=== PATIENT | female | born 1935 | race Caucasian/White ===

== ENCOUNTER → 2019-12-28 10:08 | Outpatient (CLI) | payer MEDICARE, SELFPAY ==
--- NOTE | ~2019-12-28 | XR_ITS ---
EXAMINATION: XR cervical spine 4-5V EXAM DATE: 12/28/2019 10:41 INDICATION: neck pain, radicular symptoms and tingling in left arm, nkt . TECHNIQUE: Cervical spine frontal, lateral, lateral swimmers, and open-mouth odontoid projections. Bilateral oblique projections of the cervical spine. Submentovertex projection. There are no prior st udies for comparison. FINDINGS: There is moderate disc disease at C5-6 with 2 mm retrolisthesis at this level. Moderate di sc disease at C6-7, mild at the other cervical levels. Evidence of moderate cervical facet arthropath y and mid cervical uncovertebral joint disease with the right C5-6 neural foramina probably most narr owed on exam with about moderate stenosis. The odontoid process is intact. The lateral masses of C1 line up with C2. Prevertebral soft tissue and pre-dens space are within normal limits. Lung apices ar e clear. IMPRESSION: Overall moderate cervical arthropathy. Reviewed, dictated and finalized at location A. SER ALL AROUND
== END ==
PROVIDERS: PCP Internal Medicine; Visit Provider Internal Medicine
DX: M54.2 Cervicalgia (principal)
CPT/HCPCS: 72050

== ENCOUNTER 2020-05-28 18:45 | Emergency (ER) | payer MEDICARE, SELFPAY ==
[2020-05-28 18:50] VITALS: BP 198/76; PULSE 81; RESP 18; TEMP 36.4; O2SAT 97
--- NOTE | 2020-05-28 18:56 | PC.NURSE ---
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 Pt was holding retractors for an hour for , pt was warm under OR lights. Pt reports not eating much of lunch. Pt reports continuing dizziness.
--- NOTE | 2020-05-28 18:57 | ECG_ITS ---
Measurements Intervals [place] Rate: 84 P: 53 CO: 159 QRS: -24 QRSD: 82 T: 21 QT: 371 QTc: 440 Interpretive Statements SINUS RHYTHM VOLTAGE CRITERIA FOR LVH LOW VOLTAGE- PRECORDIAL LEADS BASELINE ARTIFACT- I, II, III, AVR, AVL, AVF, V1-V6 BORDERLINE ECG Electronically Signed On 05-30-2020 9:53:25 CDT by Arnold Falk D.O.
--- NOTE | 2020-05-28 19:02 | ED.DIZZY ---
HPI - Dizziness General Chief Complaint: Dizziness Stated Complaint: near syncope, elevated blood pressures Time Seen by Provider: 05/28/20 19:00 History of Present Illness HPI Narrative: 85 yo female w/ no significnat past medical history presents to the ED for near syncope. She was assisting in a when she began to feel hot and dizzy. She then became nauseated and had to sit down. Symtpoms improved mildly once she was seated, but did not fully resolve. She now has a mild headache. She reports that she has been having issues with allergies for the past few days. Noted to have very elevated BP following this event. She reports that this is very atypical for her. No chest pain, shortness of breath, fever. She has been completely vaccinated against COVID-19 for a few months. Related Data Home Medications Medication Instructions Recorded Confirmed estradiol mg 05/28/20 vpjxkakifryj-ghpi-rfcvf acid 1 tablet PO DAILY 05/28/20 05/28/20 [Centrum Women] potassium mg 05/28/20 Allergies Allergy/AdvReac Type Severity Reaction Status Date / Time codeine Allergy Nausea and Verified 05/28/20 19:01 Vomiting Iodinated Contrast Media Allergy Hives Verified 05/28/20 19:17 Sulfa (Sulfonamide Allergy Hives Verified 05/28/20 19:01 Antibiotics) Contrast Media Allergy Hives Uncoded 05/28/20 19:01 Review of Systems Review of Systems: All systems reviewed & are unremarkable except as noted in HPI and below Constitutional: Constitutional: Reports as per HPI Eyes: Eyes: Reports no additional eye complaints ENT: Denies vertigo, Reports nasal congestion and Denies sore throat Cardiovascular: Cardiovascular: Denies chest pain Respiratory: Respiratory: Denies dyspnea Gastrointestinal: Gastrointestinal: Denies abdominal pain, Denies diarrhea, Reports nausea and Denies vomiting Genitourinary: Genitourinary: Denies hematuria and Denies dysuria Musculoskeletal: Musculoskeletal: Denies back pain Neurologic: Reports dizziness, Denies syncope, Denies numbness and Denies weakness [facility] Social History Social History Smoking status: Never smoker Substance use: never Exam Const: General: healthy appearing, no acute distress and alert Orientation/consciousness: patient oriented x3 HENMT: Head: normal to inspection Neck: Neck: normal visual inspection and no lymphadenopathy Chest: Chest palpation & inspection: no tenderness Resp: Effort & Inspection: normal respiratory effort Auscultation: clear to auscultation bilaterally, no rales, no rhonchi and no wheezes Cardio: Jugular venous distension: no JVD Rate: regular rate Rhythm: regular rhythm Heart sounds: no murmurs GI: Inspection: non-distended GI Palp: Yes Soft to palpation and No Tenderness to palpation present (GI) Skin: General skin exam: normal color Neuro: General: patient oriented x3, moves all extremities, no focal motor deficits and CN's II-XI intact bilaterally Speech: normal speech Extrem: General: normal to inspection and no edema Psych: Appearance: well kempt Affect: normal affect Course Vital Signs Vital signs: Vital Signs Temperature 36.4 C 05/28/20 18:50 Pulse Rate 81 05/28/20 18:50 Respiratory Rate 18 05/28/20 18:50 Blood Pressure 198/76 H 05/28/20 18:50 Pulse Oximetry 97 05/28/20 18:50 Temperature 36.7 C 05/28/20 22:51 Pulse Rate 86 05/28/20 22:51 Respiratory Rate 16 05/28/20 22:51 Blood Pressure 177/68 H 05/28/20 22:51 Pulse Oximetry 98 05/28/20 22:51 MDM - Dizziness MDM Narrative Medical decision making narrative: Feeling better after fluids and acetaminophen. UA consistent with UTI. This could be at least in part responsible for her symptoms. BP coming down somewhat spontaneously. Still elevated. I would be concerned about starting new blood pressure medication during an acute illness especially since she was feeling light
[2020-05-28 19:38] LABS: Basophils Absolute Auto 0.1 K/mm3 (0.0-0.1); Basophils Percent Auto 0.7 % (0.2-1.2); Eosinophils Absolute Auto 0.2 K/mm3 (0-0.3); Eosinophils Percent Auto 2.3 % (0-4.4); Hematocrit 42.1 % (37.0-47.0); Hemoglobin 14.3 g/dL (12.0-15.0); Immature Granulocyte Absolute 0.03 K/mm3 (0.00-0.031); Immature Granulocyte Percent A 0.4 % (0-0.5); Lymphocytes Absolute Auto 2.68 K/mm3 (0.9-3.2); Lymphocytes Percent Auto 35.6 % (18.3-44.2); Mean Corpuscular Hemoglobin 30.3 pg (26-34); Mean Corpuscular Volume 89.2 fl (80-100); Mean Platelet Volume 11.4 fl (7.4-10.4); Monocytes Absolute Auto 0.6 K/mm3 (0.1-0.6); Monocytes Percent Auto 7.7 % (2.6-8.5); Neutrophils Percent Auto 53.3 % (45.5-73.1); Platelet Count Result 221 k/mm3 (150-375); Red Blood Count 4.72 M/mm3 (4.2-5.4); Red Cell Distribution Width 12.8 % (11.5-14.5); White Blood Count 7.5 K/mm3 (4.5-10.0)
[2020-05-28 19:51] LABS: Add Urine Microscopic? YES; Appearance Urine Cloudy (Clear); Bacteria Urine 2+ /hpf; Bilirubin Urine Negative (Negative); Blood Urine Negative (Negative); Color Urine Yellow (Yellow); Glucose Urine UA Negative (Negative); Ketones Urine Negative (Negative); Leukocyte Esterase Ur Trace LEU/UL (Negative); Mucus Urine Rare /lpf; Nitrate Urine Negative (Negative); Protein Urine Negative (Negative); RBC Urine 0-2 /hpf (0-2); Specific Grav Ur 1.015 (1.001-1.035); Squamous Epithelial Cell Urine Many /hpf (Few); Urobilinogen Urine Negative mg/dL (<2.0)
[2020-05-28] MEDS: SODIUM CHLORIDE 0.9% IV 500 ML 999 ML IV CONT (19:58)
[2020-05-28 20:38] LABS: Alanine Aminotransferase 22 U/L (4-35); Albumin Level 4.1 g/dL (3.5-5.1); Alkaline Phosphatase 91 U/L (38-126); Anion Gap 7 mmol/L (8-16); Aspartate Amino Transferase 32 U/L (14-36); Bilirubin,Total 0.2 mg/dL (0.2-1.3); Blood Urea Nitrogen 15 mg/dL (7-17); Calcium 8.6 mg/dL (8.4-10.2); Carbon Dioxide 24 mmol/L (22-30); Chloride 108 mmol/L (98-107); Estimated CRCL calculation 37 ml/min; Estimated Glomerular Filt Rate > 60; Glucose 111 mg/dL (65-105); Potassium 3.9 mmol/L (3.4-5.0); Sodium 139 mmol/L (137-145)
[2020-05-28] MEDS: NITROFURANTOIN MONOHYD MACROCR 100 MG CAP PO (21:19)
[2020-05-28 21:27] VITALS: BP 201/88; PULSE 68; RESP 16; O2SAT 99
[2020-05-28 22:51] VITALS: BP 177/68; PULSE 86; RESP 16; TEMP 36.7; O2SAT 98
== END 2020-05-28 22:52 | disposition home or self-care (01) ==
PROVIDERS: Emergency Provider Emergency Medicine; PCP Internal Medicine
DX: R55 Syncope and collapse (principal); N39.0 Urinary tract infection, site not specified; I10 Essential (primary) hypertension; R94.31 Abnormal electrocardiogram [ECG] [EKG]
CPT/HCPCS: 36415; 80053; 81001; 85025; 93005; 96365; 99284; A9270; J0131; J7040

== ENCOUNTER 2020-08-10 09:09 | Outpatient (CLI) | payer MEDICARE, SELFPAY ==
--- NOTE | 2020-08-10 | ECHO_ITS ---
Patient Info Name: Elyssa Sosa Age: 85 years : 1935 Gender: Female Ht: 62 in Wt: 145 lbs BSA: 1.71 m2 HR: 62 bpm BP: 156 / 89 mmHg Heart Rhythm: Sinus Rhythm Technical Quality: Good Exam Date: 08/10/2020 10:50 AM Exam Location: [facility] Patient Status: Outpatient Admit Date: 08/10/2020 Staff Ordering Physician: ToddZunilda MD Portable Sawmill Operator: James Oconnell, ALEXICS, RT Attending Provider: Todd, Zunilda Connor MD Referring Physician: Todd MARTINEZ; Exam Type: CA echo doppler color flow Study Info Indications I10 - Essential (primary) hypertension Complete two-dimensional, color flow and Doppler transthoracic echocardiogram is performed. Strain analysis performed. Summary 1. Complete two-dimensional, color flow and Doppler transthoracic echocardiogram is performed. 2. Left ventricular chamber dimension is normal. 3. Left ventricular systolic function is normal, estimated at 60-65%. 4. Left atrial chamber dimension is mildly enlarged. 5. Small amounts of mitral, tricuspid and aortic regurgitation. Left Ventricle Left ventricular chamber dimension is normal. Left ventricular systolic function is normal, estimated at 60-65%. The left ventricular diastolic function is grade I diastolic dysfunction. Right Ventricle Right ventricular chamber dimension is normal. Left Atria Left atrial chamber dimension is mildly enlarged. Right Atria Right atrial chamber dimension is normal. Aortic Valve The aortic valve is normal. There is mild aortic valve regurgitation. Pulmonic Valve The pulmonic valve is normal. Mitral Valve The mitral valve has normal leaflets. There is trace mitral valve regurgitation. Tricuspid Valve The tricuspid valve leaflets are normal. There is mild tricuspid valve regurgitation. Pericardium/Pleural The pericardium appears normal. Aorta The aortic root size at the sinus of Valsalva is normal. Left Ventricular Outflow Tract Name Value Normal LVOT 2D LVOT Diameter 2.0 cm LVOT Doppler LVOT Peak Gradient 2 mmHg LVOT Mean Gradient 1 mmHg LVOT VTI 17 cm LVOT VTI/AV VTI Ratio 0.7 LVOT Stroke Volume 54 ml LVOT CO 3.1 l/min LVOT CI 1.8 l/min/m2 Mitral Valve Name Value Normal MV Doppler MV Peak Gradient 1 mmHg MV Mean Gradient 0 mmHg MV Decel Mono 313 cm/s2 MV PHT 75 ms MV Area (PHT) 2.9 cm2 4.0-5.0 MV Area (Cont Eq VTI) 3.8 cm2 MV Regurgitation Doppler
--- NOTE | ~2020-08-10 | US_ITS ---
EXAMINATION: US retroperitoneal duplex ltd DATE: 08/10/2020 10:26 INDICATION: Hypertension. TECHNIQUE: Multiple grayscale, color Doppler, and pulsed Doppler images of the kidneys and renal bdudy tika were obtained. COMPARISON: None. FINDINGS: Right kidney measures 10.4 x 3.7 x 3.9 cm. Left kidney measures 10.2 x 5.3 x 5.7 cm. No hydronephrosi s. The aorta peak systolic velocity is 96 cm/s. The right renal artery peak systolic velocity is 123 cm/s in the proximal segment, 133 cm/s in the mid segment, and 72 cm/s in the distal segment. The lef t renal artery peak systolic velocity is 177 cm/s in the proximal segment, 79 cm/s in the mid segment , and 95 cm/s in the distal segment. There is diffuse hepatic steatosis. IMPRESSION: 1. No Doppler evidence of renal artery stenosis. Reviewed, dictated and finalized at location A.
== END 2020-08-10 09:10 | disposition home or self-care (01) ==
LOC: ANHIMG 09:13
PROVIDERS: PCP Internal Medicine; Visit Provider Internal Medicine
DX: I10 Essential (primary) hypertension (principal)
CPT/HCPCS: 93306; 93976

== ENCOUNTER 2020-11-06 01:54 | Outpatient (CLI) | payer MEDICARE, SELFPAY ==
[2020-11-06 17:27] LABS: SARS-CoV-2 RNA PCR Positive
== END 2020-11-06 01:55 | disposition home or self-care (01) ==
LOC: ANHCARD 01:55
PROVIDERS: PCP Internal Medicine; Visit Provider Internal Medicine
DX: U07.1 COVID-19 (principal)
CPT/HCPCS: C9803; U0003; U0005

== ENCOUNTER 2022-10-29 14:10 | Inpatient (IN) | payer MEDICARE, SELFPAY ==
[2022-10-29] VITALS (41 sets, daily range): BP systolic 125–155; BP diastolic 56–95; PULSE 71–113; RESP 13–28; TEMP 36.2; O2SAT 93–98; BMI 26.1
--- NOTE | ~2022-10-29 | XR_ITS ---
EXAMINATION: XR chest 2V DATE: 10/29/2022 14:54 INDICATION: Chest pain and pressure. Burning sensation and back. TECHNIQUE: PA and lateral views of the chest were obtained. COMPARISON: Chest radiograph dated 09/12/2021 FINDINGS: Mild streaky lingular atelectasis at the left costophrenic angle. No other airspace opacities, pulmon oscar edema, pleural effusion or pneumothorax. The cardiomediastinal silhouette is normal. Mild thoraci c and upper lumbar spondylosis. IMPRESSION: 1. Mild lingular atelectasis. No other acute cardiopulmonary disease. Reviewed, dictated and finalized at location A.
--- NOTE | 2022-10-29 14:18 | ECG_ITS ---
Measurements Intervals [place] Rate: 98 P: 53 WV: 155 QRS: -26 QRSD: 74 T: 85 QT: 316 QTc: 405 Interpretive Statements SINUS RHYTHM POSSIBLE LEFT ATRIAL ENLARGEMENT LEFT VENTRICULAR HYPERTROPHY AND ST-T CHANGE CONSIDER ANTERIOR INFARCT, AGE INDETERMINATE ABNORMAL ECG COMPARED TO ECG 05/28/2020 18:57:37 CONSIDER ANTERIOR INFARCT, AGE INDETERMINATE NOW PRESENT Electronically Signed On 10-29-2022 14:38:46 CDT by Arnold Falk D.O.
[2022-10-29 14:35] LABS: Basophils Percent Auto 0.1 % (0.2-1.2); Hematocrit 43.1 % (37.0-47.0); Hemoglobin 14.3 g/dL (12.0-15.0); Immature Granulocyte Absolute 0.07 K/mm3 (0.00-0.031); Immature Granulocyte Percent A 0.5 % (0-0.5); Mean Corpuscular HGB Conc 33.2 g/dl (32-36); Mean Corpuscular Hemoglobin 29.5 pg (26-34); Mean Corpuscular Volume 88.9 fl (80-100); Monocytes Absolute Auto 0.2 K/mm3 (0.1-0.6); Monocytes Percent Auto 1.1 % (2.6-8.5); Neutrophils Percent Auto 84.3 % (45.5-73.1); Platelet Count Result 294 k/mm3 (150-375); Red Blood Count 4.85 M/mm3 (4.2-5.4); Red Cell Distribution Width 12.9 % (11.5-14.5); White Blood Count 14.3 K/mm3 (4.5-10.0)
[2022-10-29 14:46] LABS: Prothrombin Time 13.3 Seconds (11.1-14.7)
[2022-10-29 14:47] LABS: Partial Thromboplastin Time 26.3 SECONDS (22.3-36.8)
[2022-10-29 14:48] LABS: Alanine Aminotransferase 28 U/L (6-35); Albumin Level 4.5 g/dL (3.5-5.1); Alkaline Phosphatase 81 U/L (38-126); Anion Gap 12 mmol/L (8-16); Aspartate Amino Transferase 29 U/L (14-36); Bilirubin,Total 0.5 mg/dL (0.2-1.3); Blood Urea Nitrogen 19 mg/dL (7-17); Calcium 8.9 mg/dL (8.4-10.2); Carbon Dioxide 22 mmol/L (22-30); Chloride 104 mmol/L (98-107); Estimated CRCL calculation 45 ml/min; Estimated Glomerular Filt Rate > 60; Glucose 157 mg/dL (65-110); Lipase 99 U/L (23-300); Potassium 4.2 mmol/L (3.4-5.0); Sodium 138 mmol/L (137-145)
[2022-10-29 15:02] LABS: Troponin I 0.205 ng/mL (0.000-0.034)
[2022-10-29] MEDS: ASPIRIN 81 MG CHEWABLE TABLET 324 MG PO (15:30)
[2022-10-29] MEDS: HEPARIN SODIUM 5,000 UNITS/ML VIAL 3500 UNITS IV PUSH (18:04)
[2022-10-29] MEDS: HEPARIN SOD/D5W 100 UNITS/ML 25,000 UNITS/250 ML BAG 7 UNITS IV CONT (18:04)
--- NOTE | 2022-10-29 18:11 | ED.CHESTPAIN ---
HPI - Chest Pain General Chief Complaint: Chest Pain Stated Complaint: ELEVATED TROPONIN Time Seen by Provider: 10/29/22 15:50 Source: patient and RN notes reviewed Mode of arrival: ambulatory Limitations: no limitations History of Present Illness HPI narrative: This is an 87 year old female with history of hypertension who presents for evaluation of chest pain and elevated troponin. Patient states she has been having substernal chest burning pain with activity for 3 weeks. She states she has been going to walk in clinic at [facility] for evaluation 3 times over the past 3 weeks. They have been diagnosing her with bronchitis. This morning she was awaken out of her sleep with chest pain. This pain as associated with shortness of breath. This pain lasted for a few hours. She went to ER at [facility], and she was found to have elevated troponin. IT appears they wanted to transfer patient from ER but she left AMA to come to [place] by private care. She denies chest pain currently. She denies history of coronary artery disease. She denies cough, URI symptoms, fever, nausea, diaphoresis or leg swelling. Timing of current episode: episodic Onset: during exertion Pain location: substernal Pain radiation: right arm and back Quality: burning Exacerbating factors: exertion Risk Factors Coronary artery disease risk factors: hypertension Related Data Home Medications Medication Instructions Recorded Confirmed estradiol 0.5 mg tablet 0.5 mg PO DAILY 05/28/20 10/29/22 multivitamin-ferrous 1 tablet PO DAILY 05/28/20 10/29/22 fumarate-folic acid 18 mg-400 mcg tablet (Centrum Women) potassium 99 mg tablet 297 mg PO DAILY 05/28/20 10/29/22 amlodipine 5 mg tablet 5 mg PO DAILY 10/29/22 10/29/22 cetirizine 10 mg tablet (Zyrtec) 10 mg PO DAILY 10/29/22 10/29/22 montelukast 10 mg tablet 10 mg PO HS 10/29/22 10/29/22 omeprazole 20 mg capsule,delayed 20 mg PO DAILY 10/29/22 10/29/22 release Allergies Allergy/AdvReac Type Severity Reaction Status Date / Time codeine Allergy Nausea and Verified 10/29/22 15:49 Vomiting Iodinated Contrast Media Allergy Hives Verified 10/29/22 15:49 Sulfa (Sulfonamide Allergy Hives Verified 10/29/22 15:49 Antibiotics) Contrast Media Allergy Hives Uncoded 05/28/20 19:01 Review of Systems Constitutional: Constitutional: Reports weakness Cardiovascular: Cardiovascular: Reports chest pain, Denies syncope, Denies rapid heart rate, Denies irregular heart rhythm and Denies leg edema Respiratory: Respiratory: Denies chest congestion, Denies hemoptysis, Denies excessive phlegm production and Reports dyspnea Gastrointestinal: Gastrointestinal: Denies abdominal pain, Denies hematochezia, Denies diarrhea and Denies vomiting Genitourinary: Genitourinary: Denies hematuria and Denies dysuria Musculoskeletal: Musculoskeletal: Denies joint swelling, Denies loss of height and Denies muscle weakness Neurologic: Denies syncope, Denies focal weakness and Denies weakness PMFSH Past Medical History Medical History (Updated 10/29/22 @ 21:32 by Kristine Olson PA-C) Diverticulitis Gastroesophageal reflux disease Hypertension Surgical History Surgical History (Updated 10/29/22 @ 21:27 by Kristine Olson PA-C) History of appendectomy History of bladder surgery History of exploratory laparotomy History of hysterectomy History of tonsillectomy Family History Family History (Updated 10/29/22 @ 21:28 by Kristine Olson PA-C) Other Hypertension Social History Social History (Updated 10/29/22 @ 21:28 by Kristine Olson PA-C) Social History: Surrogate medical decision maker: Jhon Sanchez, daughter. Code status: Full code. Smoking status: Never smoker Alcohol intake: never Substance use: never Lack of Transportation: No Lack of Food: Never True Current Housing: I Have Housing Concerned About Future Housing: No Difficulty Paying G
[2022-10-29] MEDS: ONDANSETRON INJ 4 MG/2 ML VIAL IV PUSH (18:37)
--- NOTE | 2022-10-29 19:10 | PC.NURSE ---
Assumed care of pt. Pt resting quietly per cart. C/o mild nausea. Will check MAR. Otherwise in nad at this time.
--- NOTE | 2022-10-29 19:28 | ECG_ITS ---
Measurements Intervals [place] Rate: 103 P: 64 MD: 168 QRS: -16 QRSD: 84 T: 83 QT: 331 QTc: 433 Interpretive Statements SINUS TACHYCARDIA LEFT VENTRICULAR HYPERTROPHY AND ST-T CHANGE BASELINE ARTIFACT- I, II BORDERLINE ECG COMPARED TO ECG 10/29/2022 14:23:28 SINUS TACHYCARDIA NOW PRESENT Electronically Signed On 10-30-2022 6:21:02 CDT by Arnold Falk D.O.
--- NOTE | 2022-10-29 19:32 | PC.NURSE ---
Pt pushed call light to report midsternal cp radiating to bilateral shoulder blades that just started. ERP notified and orders received.
[2022-10-29] MEDS: NITROGLYCERIN SL 0.4 MG TABLET SUBLINGUAL ×2 (19:40→19:53)
--- NOTE | 2022-10-29 19:53 | PC.NURSE ---
Pain decreased with initial nitro from 9/10 to 5/10. Administered additional nitro.
--- NOTE | 2022-10-29 20:00 | PC.NURSE ---
Pt reports pain now 0/10 after nitro x 2.
[2022-10-29] MEDS: METOPROLOL TARTRATE 25 MG TABLET PO (20:29)
--- NOTE | 2022-10-29 20:32 | PC.NURSE ---
Report to DIANNA Joseph in IMU. All questions answered.
--- NOTE | 2022-10-29 20:40 | ADMGEN ---
This patient, Elyssa Sosa, was admitted to IMU Room 202-01. Patient/family oriented to hospital policies and general routines including ID bracelet, bed and alarms, visiting hours, pain management, procedures, bathroom and other care routines, personal items, smoking policy, room service/diet, and visiting hours. Information on how to activate the Rapid Response Team has been discussed. Patient/Family are encouraged to report perceived risks to care and to ask questions if they do not understand what they are told or what they should do.
--- NOTE | 2022-10-29 21:22 | PM.IMHP ---
H&P: HPI History of Present Illness Date/Time: 10/29/22 17:30 Chief Complaint: Chest pain. Narrative: This is a very pleasant 87-year-old female with hypertension and GERD who presented to the emergency department via private vehicle for evaluation of chest pain. The patient provides the following history. She describes an intermittent burning pain in the mid chest which radiates up to the right shoulder and down into the left lower chest. At times she feels short of breath with this and has occasional sensations of racing heart. She denies associated nausea, vomiting, and sweats. She was previously seen at a clinic in [place] for the symptoms a couple of weeks ago at which time she was prescribed an antibiotic, steroids, and inhaler for presumed URI. She received no benefit from any of this treatment. She was evaluated once again yesterday and a chest CT was ordered which ruled out pulmonary embolism. She had several labs drawn as well and was told that her troponin was elevated. She decided to come the [place] for treatment as she has previously worked here and did not stay at the clinic in [place]. She has never had similar symptoms. This burning sensation she has been having is not at all similar to what she experiences with GERD. She has no known history of cardiac disease. Her vital signs were stable on arrival to [place] ED. CMP and CBC were relatively unremarkable. Initial troponin was 0.205. EKG showed sinus rhythm with possible left atrial enlargement, LVH in ST T-wave changes and age-indeterminate anterior infarct. In the ED she was given metoprolol tartrate 25 mg p.o. x1, aspirin 324 mg p.o., and she was started on heparin drip. She is being admitted to the IMU with non STEMI for close monitoring and Cardiology consultation. At the time my evaluation she seems comfortable. Review of Systems Review of Systems: Twelve systems were reviewed and are negative except for as per HPI. [facility] Past Medical History Medical History (Updated 10/29/22 @ 21:32 by Kristine Olson PA-C) Diverticulitis Gastroesophageal reflux disease Hypertension Surgical History Surgical History (Updated 10/29/22 @ 21:27 by Kristine Olson PA-C) History of appendectomy History of bladder surgery History of exploratory laparotomy History of hysterectomy History of tonsillectomy Family History Family History (Updated 10/29/22 @ 21:28 by Kristine Olson PA-C) Other Hypertension Social History Social History (Updated 10/29/22 @ 21:28 by Kristine Olson PA-C) Social History: Surrogate medical decision maker: Jhon Sanchez, daughter. Code status: Full code. Smoking status: Never smoker Alcohol intake: never Substance use: never Lack of Transportation: No Lack of Food: Never True Current Housing: I Have Housing Concerned About Future Housing: No Difficulty Paying Gas/Electric Bills: No Difficulty Paying for Meds: No Currently Unemployed: No Education: Decline to Answer Difficulty w/ Childcare or Family Care: No Additional living arrangements comments: Lives in [place]. Additional occupation/education comments: Retired at the age of 85 from [employer]. Spiritual care concerns: No Meds Home Medications and Allergies Home Medications Medication Instructions Recorded Confirmed Type estradiol 0.5 mg tablet 0.5 mg PO DAILY 05/28/20 10/29/22 History multivitamin-ferrous 1 tablet PO DAILY 05/28/20 10/29/22 History fumarate-folic acid 18 mg-400 mcg tablet (Centrum Women) potassium 99 mg tablet 297 mg PO DAILY 05/28/20 10/29/22 History amlodipine 5 mg tablet 5 mg PO DAILY 10/29/22 10/29/22 History cetirizine 10 mg tablet (Zyrtec) 10 mg PO DAILY 10/29/22 10/29/22 History montelukast 10 mg tablet 10 mg PO HS 10/29/22 10/29/22 History omeprazole 20 mg capsule,delayed 20 mg PO DAILY 10/29/22 10/29/22 History release Allergies Allergy/AdvReac Type Severity Reaction Status Da
[2022-10-29 21:44] LABS: Troponin I 0.694 ng/mL (0.000-0.034)
[2022-10-29] MEDS: predniSONE 20 MG TABLET PO (22:41)
[2022-10-29] MEDS: MONTELUKAST SODIUM 10 MG TABLET PO (22:41)
[2022-10-29] MEDS: MELATONIN 5 MG TABLET PO (22:41)
--- NOTE | 2022-10-29 22:49 | PC.NURSE ---
Spoke with Dr. Rivera and [facility] regarding pt's contrast allergy. Pt to be pre-treated with three doses of oral Prednisone and one dose of oral Benadryl prior to cardiac cath. Pt to receive a dose of Prednisone 13 hours, 6 hours, and 1 hour prior to cath. Benadryl to be administered 1 hour prior to cath. Staff to notify pharmacy if last dose of Prednisone and Benadryl needs to be administered before scheduled 1000 dose, as cath is not yet scheduled.
[2022-10-30] VITALS (36 sets, daily range): BP systolic 101–153; BP diastolic 48–73; PULSE 60–96; RESP 12–23; TEMP 36.1–36.7; O2SAT 92–97
[2022-10-30 01:02] LABS: Partial Thromboplastin Time 66.7 SECONDS (22.3-36.8)
[2022-10-30] MEDS: HEPARIN SODIUM 5,000 UNITS/ML VIAL 2500 UNITS IV PUSH (01:57)
[2022-10-30] MEDS: predniSONE 20 MG TABLET PO (04:04)
--- NOTE | 2022-10-30 06:00 | ECHO_ITS ---
Patient Info Name: Elyssa Sosa Age: 87 years : 1935 Gender: Female Ht: 62 in Wt: 147 lbs BSA: 1.73 m2 HR: 65 bpm BP: 101 / 52 mmHg Heart Rhythm: Sinus Rhythm Technical Quality: Good Exam Date: 10/30/2022 9:00 AM Exam Location: [facility] Card Pulmonary Patient Status: Inpatient Admit Date: 10/29/2022 Staff Ordering Physician: Jody Blake MD Administrative Fellow: Bridget Brown RDCS Attending Provider: Agusto Vaca MD Referring Physician: Lou SANTOS; Exam Type: CA echo doppler color flow Study Info Indications - CHEST PAIN Complete two-dimensional, color flow and Doppler transthoracic echocardiogram is performed. Summary 1. Complete two-dimensional, color flow and Doppler transthoracic echocardiogram is performed. 2. Left ventricular chamber dimension is normal. 3. Left ventricular systolic function is normal, estimated at 60-65%. 4. There is mildly increased left ventricular wall thickness. 5. The left ventricular diastolic function is grade I diastolic dysfunction. 6. The apical inferior wall, and apical cap are akinetic. 7. The apical septum, and apical anterior wall are hypokinetic. 8. Left atrial chamber dimension is mildly enlarged. 9. There is mild aortic valve sclerosis. 10. There is mild aortic valve regurgitation. 11. There is mild aortic valve calcification. 12. There is mild to moderate mitral valve regurgitation. 13. There is mild tricuspid valve regurgitation. Left Ventricle Left ventricular chamber dimension is normal. Left ventricular systolic function is normal, estimated at 60-65%. There is mildly increased left ventricular wall thickness. The left ventricular diastolic function is grade I diastolic dysfunction. The apical inferior wall, and apical cap are akinetic. The apical septum, and apical anterior wall are hypokinetic. All other rogers appear normal. Right Ventricle Right ventricular chamber dimension is normal. Right ventricular systolic function is normal. Left Atria Left atrial chamber dimension is mildly enlarged. Right Atria Right atrial chamber dimension is normal. Atrial Septum Intact interatrial septum visualized by color flow imaging. Aortic Valve The aortic valve is trileaflet. There is mild aortic valve sclerosis. There is no aortic valve stenosis. There is mild aortic valve regurgitation. There is mild aortic valve calcification. Pulmonic Valve The pulmonic valve is normal. There is no pulmonic valve stenosis. There is trace pulmonic regurgitation. Mitral Valve The mitral valve has normal leaflets. There is no mitral valve stenosis. There is mild to moderate mitral valve regurgitation. Tricuspid Valve The tricuspid valve leaflets are normal. There is no significant tricuspid valve stenosis. There is mild tricuspid valve regurgitation. No pulmonary hypertension, estimated pulmonary arterial systolic pressure is 33 mmHg. Pericardium/Pleural The pericardium appears normal. There is trivial pericardial effusion. Inferior Vena Cava Normal inferior vena cava with >50% collapse upon inspiration consistent with normal right atrial pressure, 8 mmHg. Aorta The aortic root size at the sinus of Valsalva is normal. Left Ventricular Outflow Tract Name Value Normal LVOT 2D LVOT Diameter 1.9 cm
[2022-10-30 08:12] LABS: Basophils Percent Auto 0.1 % (0.2-1.2); Hematocrit 36.9 % (37.0-47.0); Hemoglobin 12.3 g/dL (12.0-15.0); Immature Granulocyte Absolute 0.07 K/mm3 (0.00-0.031); Immature Granulocyte Percent A 0.5 % (0-0.5); Lymphocytes Absolute Auto 2.25 K/mm3 (0.9-3.2); Lymphocytes Percent Auto 16.1 % (18.3-44.2); Mean Corpuscular HGB Conc 33.3 g/dl (32-36); Mean Corpuscular Hemoglobin 30.1 pg (26-34); Mean Corpuscular Volume 90.2 fl (80-100); Mean Platelet Volume 10.2 fl (7.4-10.4); Monocytes Absolute Auto 0.4 K/mm3 (0.1-0.6); Monocytes Percent Auto 2.5 % (2.6-8.5); Neutrophils Absolute Auto 11.3 K/mm3 (1.3-6.7); Neutrophils Percent Auto 80.8 % (45.5-73.1); Platelet Count Result 249 k/mm3 (150-375); Red Blood Count 4.09 M/mm3 (4.2-5.4)
[2022-10-30 08:24] LABS: Partial Thromboplastin Time 101.2 SECONDS (22.3-36.8)
--- NOTE | 2022-10-30 08:28 | PM.IMPN ---
Progress Note: A&P Assessment and Plan (1) Non-ST elevation myocardial infarction (NSTEMI): Code(s): I21.4 - Non-ST elevation (NSTEMI) myocardial infarction Status: Acute Assessment and Plan: Coronary angiography recommended per Cardiology. Catheterization performed 10/30 Loaded with ASA 324mg x 1. Continue ASA 81mg once daily. Will load with Plavix 600mg x 1 and continue with Plavix 75mg once daily thereafter. Start high-intensity statin and heparin drip for now. Has gotten total of Prednisone 40mg PO in preparation for contrast given iodine allergy. Will give Solumedrol 40mg IV and Benadryl 50mg IV. Echocardiogram 10/30 showed EF of 60-65% with grade 1 diastolic dysfunction, mild valvular disease Cardiac catheterization 10/30 showed: 1. The proximal and mid LAD has heavy diffuse calcifications. The mid LAD has two tandem dense calcific lesions of 80-90%. 2. The mid RCA has diffuse disease with an 80% stenosis. Attempted PCI of the mid RCA lesion, but unable to get good guide catheter engagement of the RCA despite attempts with multiple different guide catheters. Cardiology is recommending: Plan for complex PCI as an outpatient at [facility] with Dr. Christensen (tentatively scheduled for November 14). Continue ASA 81mg once daily, Plavix 75mg once daily, high-intensity statin. Will optimize antianginal therapy. Continue calcium channel myles. Will add Imdur. Anticipate discharge 10/31 (2) Hypertension: Code(s): I10 - Essential (primary) hypertension Status: Acute Assessment and Plan: Blood pressure reviewed 10/30 (3) Leukocytosis: Code(s): D72.829 - Elevated white blood cell count, unspecified Status: Acute Assessment and Plan: Stable, likely reactive, monitor (4) Hyperglycemia: Code(s): R73.9 - Hyperglycemia, unspecified Status: Acute Assessment and Plan: Blood glucose reviewed 10/30 (5) Gastroesophageal reflux disease: Code(s): K21.9 - Gastro-esophageal reflux disease without esophagitis Status: Acute Plan DVT prophylaxis with heparin drip, now SCDs GI prophylaxis with PPI Code status full code 10/29: the patient presented to the emergency department for evaluation of intermittent chest discomfort as detailed in HPI. Labs, imaging, EKG, and all reports were personally reviewed. Her history is somewhat unusual for cardiac pain however she does have elevated troponins and EKG changes. She has been started on a heparin drip. She received metoprolol and aspirin in the ED. She will be NPO after midnight for possible cardiac catheterization tomorrow. Her blood pressures were reviewed and they have been relatively stable. Continue antihypertensives and monitor blood pressures closely. Random glucose was 157. Check fasting level and hemoglobin A1c. White blood cell count is elevated however she was recently on steroids. She gives no history to suggest underlying acute infection. Her home medications will be reviewed and resumed as appropriate. Subjective Date/time seen: 10/30/22 08:28 Interval history: 87-year-old female with history of hypertension and GERD presenting with chest pain and currently being treated for NSTEMI. No overnight events noted. [facility] 10/30. Review of Systems Review of Systems: ROS unobtainable: Yes other Exam Narrative: In heart catheterization Objective Data Vital Signs Vital Signs: Vital Signs - 24 hr 10/29/22 14:17 10/29/22 15:14 10/29/22 15:15 Temperature 97.2 F L Pulse Rate 113 H 103 H 100 Respiratory Rate 18 13 23 H Blood Pressure 152/74 H 146/75 H Pulse Oximetry 97 97 94 Oxygen Delivery Room Air 10/29/22 15:16 10/29/22 15:17 10/29/22 15:30 Temperature Pulse Rate 97 100 96 Respiratory Rate 18 20 23 H Blood Pressure 139/77 Pulse Oximetry 97 96 97 Oxygen Delivery 10/29/22 15:31 10/29/22 15:46 10/29/22 15:47 Temperature Pulse Rate 96 98 98
[2022-10-30 08:35] LABS: Anion Gap 9 mmol/L (8-16); Blood Urea Nitrogen 19 mg/dL (7-17); Calcium 8.4 mg/dL (8.4-10.2); Carbon Dioxide 21 mmol/L (22-30); Chloride 106 mmol/L (98-107); Cholesterol 228 mg/dL (0-200); Estimated CRCL calculation 40 ml/min; Estimated Glomerular Filt Rate > 60; Glucose 157 mg/dL (65-110); HDL Direct 44 mg/dL; Magnesium 2.4 mg/dL (1.6-2.3); Potassium 4.4 mmol/L (3.4-5.0); Sodium 136 mmol/L (137-145); Triglycerides 177 mg/dL (<150)
[2022-10-30 08:45] LABS: LDL Cholesterol Direct 144 mg/dL
--- NOTE | 2022-10-30 09:10 | PM.CNCAR ---
Assessment and Plan Assessment and plan (1) Non-ST elevation myocardial infarction (NSTEMI): Code(s): I21.4 - Non-ST elevation (NSTEMI) myocardial infarction Status: Acute Assessment and Plan: Coronary angiography recommended. Discussed the indications for the procedure, procedure details, risks vs benefits, alternative management options. Patient agreeable to cath. Will proceed with cath today. Loaded with ASA 324mg x 1. Continue ASA 81mg once daily. Will load with Plavix 600mg x 1 and continue with Plavix 75mg once daily thereafter. Start high-intensity statin. Continue Heparin drip for now. Has gotten total of Prednisone 40mg PO in preparation for contrast given iodine allergy. Will give Solumedrol 40mg IV and Benadryl 50mg IV. Echocardiogram pending. Further recommendations/plan pending results of cardiac catheterization. (2) Hypertension: Code(s): I10 - Essential (primary) hypertension Status: Acute Assessment and Plan: Stable. Continue Amlodipine. (3) Hyperlipidemia: Code(s): E78.5 - Hyperlipidemia, unspecified Status: Acute Assessment and Plan: Start high intensity statin. Plan Recommendations/plan discussed with Hospitalist. History of Present Illness History of Present Illness Consult date/time: 10/30/22 09:10 Requesting physician: Jody Blake MD Consult reason: chest pain Reason For Visit: NSTEMI Narrative: We are consulted for NSTEMI. This is an 87 year old female with hypertension and GERD who presented with chest pain. Has been having substernal burning type of chest pain for about the past 3 weeks. Improved with NTG that she received in the ER, and has been chest pain free since coming up to the floor from the ER. Patient reports that her chest pain would come on with exertion. EKG shows sinus tachycardia with LVH with secondary changes, no ischemic changes. CXR without acute findings. Her troponins are 0.205, 0.420, 0.694. Patient was started on Heparin drip. Started on PO Prednisone for iodine allergy as well. Review of Systems Review of Systems: All systems reviewed & are unremarkable except as noted in HPI and below (HPI) [facility] Past Medical History Medical History Diverticulitis Gastroesophageal reflux disease Hypertension Surgical History Surgical History History of appendectomy History of bladder surgery History of exploratory laparotomy History of hysterectomy History of tonsillectomy Family History Family History Other Hypertension Social History Social History Social History: Surrogate medical decision maker: Jhon Sanchez, daughter. Code status: Full code. Smoking status: Never smoker Alcohol intake: never Substance use: never Lack of Transportation: No Lack of Food: Never True Current Housing: I Have Housing Concerned About Future Housing: No Difficulty Paying Gas/Electric Bills: No Difficulty Paying for Meds: No Currently Unemployed: No Education: Decline to Answer Difficulty w/ Childcare or Family Care: No Additional living arrangements comments: Lives in [place]. Additional occupation/education comments: Retired at the age of 85 from [employer]. Spiritual care concerns: No Meds Home Medications and Allergies Home Medications Medication Instructions Recorded Confirmed Type estradiol 0.5 mg tablet 0.5 mg PO DAILY 05/28/20 10/29/22 History multivitamin-ferrous 1 tablet PO DAILY 05/28/20 10/29/22 History fumarate-folic acid 18 mg-400 mcg tablet (Centrum Women) potassium 99 mg tablet 297 mg PO DAILY 05/28/20 10/29/22 History amlodipine 5 mg tablet 5 mg PO DAILY 10/29/22 10/29/22 History cetirizine 10 mg tablet (Zyrtec) 10 mg PO DAILY 10/29/22 10/29/22 His
--- NOTE | 2022-10-30 09:21 | WPDMODSED ---
Moderate Sedation Note-Pt Data Patient Data Diagnosis: NSTEMI Present Complaint: NSTEMI Procedure to be performed/Plan: Coronary angiography, left heart cath, +/- percutaneous coronary intervention Allergies Allergy/AdvReac Type Severity Reaction Status Date / Time codeine Allergy Nausea and Verified 10/29/22 15:49 Vomiting Iodinated Contrast Media Allergy Hives Verified 10/29/22 15:49 Sulfa (Sulfonamide Allergy Hives Verified 10/29/22 15:49 Antibiotics) Contrast Media Allergy Hives Uncoded 05/28/20 19:01 Home Medications Medication Instructions Recorded Confirmed Type estradiol 0.5 mg tablet 0.5 mg PO DAILY 05/28/20 10/29/22 History multivitamin-ferrous 1 tablet PO DAILY 05/28/20 10/29/22 History fumarate-folic acid 18 mg-400 mcg tablet (Centrum Women) potassium 99 mg tablet 297 mg PO DAILY 05/28/20 10/29/22 History amlodipine 5 mg tablet 5 mg PO DAILY 10/29/22 10/29/22 History cetirizine 10 mg tablet (Zyrtec) 10 mg PO DAILY 10/29/22 10/29/22 History montelukast 10 mg tablet 10 mg PO HS 10/29/22 10/29/22 History omeprazole 20 mg capsule,delayed 20 mg PO DAILY 10/29/22 10/29/22 History release Current Medications: Active Medications Acetaminophen (Acetaminophen 325 Mg Tablet) 650 mg PO Q6H PRN PRN Reason: Mild Pain (1-3) or Fever Amlodipine Besylate (Amlodipine Besylate 5 Mg Tablet) 5 mg PO DAILY [facility] Aspirin (Aspirin 81 Mg Chewable Tablet) 81 mg PO DAILY@0800 [facility] Atorvastatin Calcium (Atorvastatin 40 Mg Tablet) 80 mg PO DAILY [facility] Bisacodyl (Bisacodyl 5 Mg Tablet Ec) 5 mg PO QAM PRN PRN Reason: Constipation Clopidogrel Bisulfate (Clopidogrel Bisulfate 75 Mg Tablet) 75 mg PO QAM [facility] Heparin Sodium (Porcine) (Heparin Sodium 5,000 Units/Ml Vial) 4,000 units IV PUSH PRN PRN PRN Reason: aPTT less than 55 seconds Heparin Sodium (Porcine) (Heparin Sodium 5,000 Units/Ml Vial) 2,500 units IV PUSH PRN PRN PRN Reason: aPTT 55 - 70 seconds Last Admin: 10/30/22 01:57 Dose: 2,500 units Heparin Sodium/Dextrose (Heparin Sodium/D5w 100 Units/Ml) 25,000 units in 250 mls @ 7 mls/hr IV CONT .Q24H AMOS; Protocol Last Titration: 10/30/22 04:04 Dose: 800 units/hr, 8 mls/hr Loratadine (Loratadine 10 Mg Tablet) 10 mg PO QAM [facility] Melatonin (Melatonin 5 Mg Tablet) 5 mg PO HS AMOS Last Admin: 10/29/22 22:41 Dose: 5 mg Methylprednisolone Sodium Succinate (Methylprednisolone Sod Succ 40 Mg Vial) 40 mg IV PUSH Q4H AMOS Miscellaneous Information (Pre Contrast/Procedure Medications: Pito Escamilla To Stop Po Prednisone, Continue With Solumed) 1 each XX CLARIFY AMOS Stop: 11/29/22 00:00 Montelukast Sodium (Montelukast Sodium 10 Mg Tablet) 10 mg PO HS AMOS Last Admin: 10/29/22 22:41 Dose: 10 mg Multivitamins/Minerals (Multivitamins /C Lutein (Centrum Silver) Tablet *Bkc) 1 tab PO DAILY [facility] Nitroglycerin (Nitroglycerin Sl 0.4 Mg Tablet) 0.4 mg SUBLINGUAL Q5MIN PRN PRN Reason: Chest Pain Last Admin: 10/29/22 19:53 Dose: 0.4 mg Ondansetron HCl (Ondansetron Inj 4 Mg/2 Ml Vial) 4 mg IV PUSH Q4H PRN PRN Reason: Nausea Last Admin: 10/29/22 18:37 Dose: 4 mg Pantoprazole Sodium (Pantoprazole 40 Mg Tablet) 40 mg PO QAM [facility] Perflutren Lipid Microsphere (Perflutren Lipid Microspheres 1.5 Ml Vial Diluted To 10 Ml Total Volume) 0 ml IV PUSH ONCE PRN; Protocol PRN Reason: adequate visualization Stop: 11/01/22 16:38 Prednisone (Prednisone 20 Mg Tablet) 20 mg PO ONCE ONE Stop: 10/30/22 10:01 Sedation/Anesthesia: No previous sedation/anesthesia problems (including family history). [facility] Past Medical History Medical History Diverticulitis Gastroesophageal reflux disease Hypertension Surgical History Surgical History History of appendectomy History of bladder surgery History of exploratory laparotomy History of hysterectomy History of tonsillectomy Family History Family History (Revie
[2022-10-30] MEDS: CLOPIDOGREL BISULFATE 300 MG TABLET 600 MG PO (09:29)
[2022-10-30] MEDS: ASPIRIN 81 MG CHEWABLE TABLET PO (09:29)
[2022-10-30] MEDS: diphenhydrAMINE HCl INJ 50 MG/ML VIAL IV PUSH (09:30)
[2022-10-30] MEDS: methylPREDNISolone SOD SUCC 40 MG VIAL IV PUSH (09:30)
[2022-10-30] MEDS: amLODIPine BESYLATE 5 MG TABLET PO (09:30)
[2022-10-30] MEDS: PANTOPRAZOLE 40 MG TABLET PO (09:30)
[2022-10-30] MEDS: ATORVASTATIN 40 MG TABLET 80 MG PO (09:30)
[2022-10-30 09:57] LABS: Thyroid Stimulating Hormone 0.745 uIU/mL (0.465-4.680)
--- NOTE | 2022-10-30 11:12 | WPDCARDPROC ---
Cardiac Cath Procedure Note Date of procedure:: 10/30/22 Performing physician:: CATHETERIZATION LABORATORY REPORT Procedure Date: 10/30/2022 Decision Unit Rn: Gale Hummel M.D., [facility]? Referring Physician: Gale Hummel M.D. Anesthesia: Versed and Fentanyl were ordered and given in my presence at 10:04, procedure ended at 11:02. Supervision of nurse monitored moderate sedation with Versed and Fentanyl was provided for 58 minutes. Total of Versed 1.5mg and Fentanyl 75mcg were administered by the Fingernail Sculptor RN Zaria Alvarenga. Pre-op Diagnosis: Coronary artery disease Post-op Diagnosis: 1. The proximal and mid LAD has heavy diffuse calcifications. The mid LAD has two tandem dense calcific lesions of 80-90%. 2. The mid RCA has diffuse disease with an 80% stenosis. Procedure(s): 1. Moderate sedation 2. Ultrasound-guided access of the right common femoral artery 3. Coronary angiography Access Site: Right common femoral artery Brief History and Clinical Indications: Patient is an 87 year old female with hypertension and GERD who is referred for [facility] for NSTEMI. All risks, benefits and alternatives to left heart catheterization with or without percutaneous coronary intervention was discussed at length with the patient. Risk of complications including but not limited to bleeding, infection, arrhythmia, stroke, worsening kidney function, blood loss, groin hematoma, limb loss, emergency coronary artery bypass grafting, and even were discussed with the patient and all questions were answered. The patient understood and wished to proceed. Time out called, patient name, date of , medical record number, allergies, procedure performed, identify Decision Unit Rn, patient and staff member concurred with accurate data, procedure carried on. Findings: LEFT HEART CATHETERIZATION FINDINGS: 1. Left main: The left main coronary artery is widely patent without any significant obstructive disease. 2. Left anterior descending: The proximal and mid LAD has heavy diffuse calcifications. The proximal LAD has luminal irregularities. The mid and distal LAD has diffuse disease. The mid LAD has two tandem dense calcific lesions of 80-90%. The first diagonal branch is a small caliber bifurcating vessel without any obstructive disease. The remainder of the diagonal branches are very small caliber vessels with diffuse disease. 3. Left circumflex: The left circumflex artery has mild diffuse disease. The OM vessel bifurcates into two branches in its mid portion. Prior to the bifurcation, the OM vessel has mild diffuse disease. After the bifurcation, the upper branch is a small caliber vessel with mild diffuse disease without any obstructive angiographic disease. The lower branch is a medium caliber vessel with moderate ostial stenosis. 4. Right coronary artery: The RCA is the dominant vessel. The proximal RCA has luminal irregularities. The mid RCA has diffuse disease with an 80% stenosis. The distal RCA has luminal irregularities. The RPDA and RPLV are small caliber vessels without any obstructive disease. Description of Procedure: Informed consent signed and placed in the chart. Patient transferred to label drier room. Prepped and draped in usual sterile fashion. 2% lidocaine in right groin area. Micropuncture needle used to access right common femoral artery with Seldinger technique under ultrasound guidance. J wire advanced, micropuncture cannula placed. Right iliofemoral angiogram performed, access confirmed and micropuncture cannula exchanged for 5-FR sheath. 5F FL 4 diagnostic catheter engaged Left Main Coronary Artery. 5F FR 4 diagnostic catheter engaged Right Coronary Artery. Multiple orthogonal angiogram obtained and reviewed. After reviewing angiograms, decision made to do PCI of the RCA lesion. Angiomax bolus given. The existing 5F arterial sheath was upsized to 6F. Attempted to engage the RCA with 6F JR 4 guide catheter, 6F WRP guide hillary
[2022-10-30] MEDS: SODIUM CHLORIDE 0.9% IV 1,000 ML 125 ML IV CONT (14:30)
[2022-10-30] MEDS: ISOSORBIDE MONONITRATE 30 MG TAB.ER.24H PO (16:47)
--- NOTE | 2022-10-30 16:47 | PC.NURSE ---
On 10/30/22, the student, Bruna [facility], provided care and completed [facility] documentation on this patient. I have reviewed the student's documentation and agree with the findings.
[2022-10-30] MEDS: BISACODYL 5 MG TABLET EC PO (20:29)
[2022-10-30 21:06] LABS: Hemoglobin A1C 5.8 % (<5.7)
[2022-10-30] MEDS: MELATONIN 5 MG TABLET PO (21:16)
[2022-10-30] MEDS: MONTELUKAST SODIUM 10 MG TABLET PO (21:16)
[2022-10-31] VITALS (7 sets, daily range): BP systolic 106–146; BP diastolic 51–60; PULSE 61–77; RESP 14–16; TEMP 36.2–36.3; O2SAT 96–98
[2022-10-31 05:57] LABS: Basophils Percent Auto 0.1 % (0.2-1.2); Hematocrit 32.1 % (37.0-47.0); Hemoglobin 10.4 g/dL (12.0-15.0); Immature Granulocyte Absolute 0.11 K/mm3 (0.00-0.031); Immature Granulocyte Percent A 0.7 % (0-0.5); Lymphocytes Absolute Auto 3.51 K/mm3 (0.9-3.2); Lymphocytes Percent Auto 23.9 % (18.3-44.2); Mean Corpuscular HGB Conc 32.4 g/dl (32-36); Mean Corpuscular Volume 92.5 fl (80-100); Mean Platelet Volume 10.3 fl (7.4-10.4); Monocytes Percent Auto 6.6 % (2.6-8.5); Neutrophils Absolute Auto 10.1 K/mm3 (1.3-6.7); Neutrophils Percent Auto 68.7 % (45.5-73.1); Platelet Count Result 204 k/mm3 (150-375); Red Blood Count 3.47 M/mm3 (4.2-5.4); Red Cell Distribution Width 13.4 % (11.5-14.5); White Blood Count 14.7 K/mm3 (4.5-10.0)
[2022-10-31 06:30] LABS: Alanine Aminotransferase 19 U/L (6-35); Albumin Level 2.9 g/dL (3.5-5.1); Alkaline Phosphatase 64 U/L (38-126); Anion Gap 3 mmol/L (8-16); Aspartate Amino Transferase 26 U/L (14-36); Bilirubin,Total 0.4 mg/dL (0.2-1.3); Blood Urea Nitrogen 24 mg/dL (7-17); Calcium 7.7 mg/dL (8.4-10.2); Carbon Dioxide 24 mmol/L (22-30); Chloride 108 mmol/L (98-107); Estimated CRCL calculation 32 ml/min; Estimated Glomerular Filt Rate 60; Glucose 120 mg/dL (65-110); Potassium 4.2 mmol/L (3.4-5.0); Sodium 135 mmol/L (137-145)
[2022-10-31] MEDS: ISOSORBIDE MONONITRATE 30 MG TAB.ER.24H PO (08:50)
[2022-10-31] MEDS: amLODIPine BESYLATE 5 MG TABLET PO (08:50)
[2022-10-31] MEDS: ATORVASTATIN 40 MG TABLET 80 MG PO (08:50)
[2022-10-31] MEDS: MULTIVITAMINS /C LUTEIN (CENTRUM SILVER) TABLET *BKC 1 TAB PO (08:51)
[2022-10-31] MEDS: PANTOPRAZOLE 40 MG TABLET PO (08:51)
[2022-10-31] MEDS: ASPIRIN 81 MG CHEWABLE TABLET PO (08:51)
[2022-10-31] MEDS: LORATADINE 10 MG TABLET PO (08:51)
[2022-10-31] MEDS: CLOPIDOGREL BISULFATE 75 MG TABLET PO (08:51)
--- NOTE | 2022-10-31 08:57 | PM.IMPN ---
Progress Note: A&P Assessment and Plan (1) Non-ST elevation myocardial infarction (NSTEMI): Code(s): I21.4 - Non-ST elevation (NSTEMI) myocardial infarction Status: Acute Assessment and Plan: Coronary angiography recommended per Cardiology. Catheterization performed 10/30 Loaded with ASA 324mg x 1. Continue ASA 81mg once daily. Will load with Plavix 600mg x 1 and continue with Plavix 75mg once daily thereafter. Start high-intensity statin and heparin drip for now. Has gotten total of Prednisone 40mg PO in preparation for contrast given iodine allergy. Will give Solumedrol 40mg IV and Benadryl 50mg IV. Echocardiogram 10/30 showed EF of 60-65% with grade 1 diastolic dysfunction, mild valvular disease Cardiac catheterization 10/30 showed: 1. The proximal and mid LAD has heavy diffuse calcifications. The mid LAD has two tandem dense calcific lesions of 80-90%. 2. The mid RCA has diffuse disease with an 80% stenosis. Attempted PCI of the mid RCA lesion, but unable to get good guide catheter engagement of the RCA despite attempts with multiple different guide catheters. Cardiology is recommending: Plan for complex PCI as an outpatient at [facility] with Dr. Christensen (tentatively scheduled for November 14). Continue ASA 81mg once daily, Plavix 75mg once daily, high-intensity statin. Will optimize antianginal therapy. Continue calcium channel myles. Will add Imdur. Anticipate discharge 10/31 (2) Hypertension: Code(s): I10 - Essential (primary) hypertension Status: Acute Assessment and Plan: Blood pressure reviewed 10/31 (3) Leukocytosis: Code(s): D72.829 - Elevated white blood cell count, unspecified Status: Acute Assessment and Plan: Stable, likely reactive, monitor 10/31: slightly increased, check PCT/CRP/LA, recheck CBC this afternoon (4) Hyperglycemia: Code(s): R73.9 - Hyperglycemia, unspecified Status: Acute Assessment and Plan: Blood glucose reviewed 10/31 (5) Gastroesophageal reflux disease: Code(s): K21.9 - Gastro-esophageal reflux disease without esophagitis Status: Acute Plan DVT prophylaxis with heparin drip, now SCDs GI prophylaxis with PPI Code status full code 10/29: the patient presented to the emergency department for evaluation of intermittent chest discomfort as detailed in HPI. Labs, imaging, EKG, and all reports were personally reviewed. Her history is somewhat unusual for cardiac pain however she does have elevated troponins and EKG changes. She has been started on a heparin drip. She received metoprolol and aspirin in the ED. She will be NPO after midnight for possible cardiac catheterization tomorrow. Her blood pressures were reviewed and they have been relatively stable. Continue antihypertensives and monitor blood pressures closely. Random glucose was 157. Check fasting level and hemoglobin A1c. White blood cell count is elevated however she was recently on steroids. She gives no history to suggest underlying acute infection. Her home medications will be reviewed and resumed as appropriate. Subjective Date/time seen: 10/31/22 08:57 Interval history: 87-year-old female with history of hypertension and GERD presenting with chest pain and currently being treated for NSTEMI. No overnight events noted. No chest pain or shortness of breath. No nausea, vomiting or diarrhea. No fevers or chills. Review of Systems Review of Systems: 12 point review of systems was assessed and was negative except as noted in the HPI Exam Narrative: General: No acute distress, alert and oriented per baseline HEENT: Atraumatic, normocephalic, mucous membranes moist CV: Regular rate and rhythm, S1, S2 Lungs: Clear to auscultation bilaterally, no rales or crackles noted, no wheezes, good air entry Abdomen: Soft, nontender, nondistended Extremities: Normal to inspection Skin: No rashes noted, no lesions or
[2022-10-31 09:32] LABS: Lactic Acid Reflex 3.2 mmol/L (0.7-2.0)
[2022-10-31 09:35] LABS: CRP 0.5 mg/dL (<1.0)
--- NOTE | 2022-10-31 11:31 | PM.PNCARD ---
Progress Note: A&P Assessment and Plan (1) Non-ST elevation myocardial infarction (NSTEMI): Code(s): I21.4 - Non-ST elevation (NSTEMI) myocardial infarction Status: Acute Assessment and Plan: Echocardiogram 10/30 shows: LVEF 60-65%, akinesis of apical inferior wall and apical cap, hypokinesis of apical septum and apical anterior rogers, mild aortic valve regurgitation, mild-moderate mitral valve regurgitation, mild tricuspid valve regurgitation. Cardiac catheterization 10/30 showed: 1. The proximal and mid LAD has heavy diffuse calcifications. The mid LAD has two tandem dense calcific lesions of 80-90%. The LAD disease is not amenable to intervention at [facility] as it will need atherectomy, which we do not have available at [facility]. 2. The mid RCA has diffuse disease with an 80% stenosis. Attempted PCI of the mid RCA lesion, but unable to get good guide catheter engagement of the RCA despite attempts with multiple different guide catheters. Given this, will plan for complex PCI as an outpatient. Initially scheduled PCI with our group at [facility] with Dr. Christensen (scheduled for November), however, patient and family now requesting [facility] instead. Will have our office refer patient to [facility]. Continue ASA 81mg once daily, Plavix 75mg once daily, high-intensity statin. Will optimize antianginal therapy. Continue calcium channel myles. Continue Imdur. (2) Hypertension: Code(s): I10 - Essential (primary) hypertension Status: Acute Assessment and Plan: Stable. Continue Amlodipine. (3) Hyperlipidemia: Code(s): E78.5 - Hyperlipidemia, unspecified Status: Acute Assessment and Plan: Continue high-intensity statin. Plan Okay to discharge patient from a cardiology standpoint. Will get patient referred to [facility]. Recommendations/plan discussed with Hospitalist. Subjective Date/time seen: 10/31/22 11:31 Interval history: Reason for consult: NSTEMI HPI: We are consulted for NSTEMI. This is an 87 year old female with hypertension and GERD who presented with chest pain. Has been having substernal burning type of chest pain for about the past 3 weeks. Improved with NTG that she received in the ER, and has been chest pain free since coming up to the floor from the ER. Patient reports that her chest pain would come on with exertion. EKG shows sinus tachycardia with LVH with secondary changes, no ischemic changes. CXR without acute findings. Her troponins are 0.205, 0.420, 0.694. Patient was started on Heparin drip. Started on PO Prednisone for iodine allergy as well. Date of service 10/31: Patient has not had any more chest pain. Otherwise feeling well. Yesterday, patient and family were okay with having staged PCI done at [facility], however, they are now requesting [facility] instead. Tele unremarkable. Review of Systems Review of Systems: No chest pain, shortness of breath, palpitatons Exam Const: General: comfortable and no acute distress HENMT: Mouth: Yes moist mucous membranes Eyes: General: appearance normal, both eyes and all related structures Sclera: sclerae normal Resp: Effort & Inspection: normal respiratory effort Cardio: Rate: regular rate Rhythm: regular rhythm Skin: General skin exam: normal color Neuro: Speech: normal speech Psych: Mental Status: mental status grossly normal Affect: normal affect Objective Data Vital Signs Vital Signs: Vital Signs - 24 hr 10/30/22 11:45 10/30/22 12:00 10/30/22 12:15 Temperature Pulse Rate 64 60 61 Respiratory Rate 16 13 12 Blood Pressure 127/60 125/64 124/66 Pulse Oximetry 95 92 92 Oxygen Delivery Room Air Room Air Room Air 10/30/22 12:30 10/30/22 12:45 10/30/22 12:55 Temperature Pulse Rate 60 69 60 Respiratory Rate 12 20 15 Blood Pressure 125/63 129/58 L 125/63 Pulse Oximetry 93 93 92 Oxygen Delivery Room Air Room Air Room Air 10/30/22 12:57 10/30/22
[2022-10-31 12:20] LABS: Reflex Lactic Acid Yes or No Add Lactic
[2022-10-31 12:47] LABS: Basophils Percent Auto 0.1 % (0.2-1.2); Eosinophils Percent Auto 0.2 % (0-4.4); Hematocrit 33.9 % (37.0-47.0); Hemoglobin 10.9 g/dL (12.0-15.0); Immature Granulocyte Absolute 0.21 K/mm3 (0.00-0.031); Immature Granulocyte Percent A 1.4 % (0-0.5); Lymphocytes Percent Auto 33.2 % (18.3-44.2); Mean Corpuscular HGB Conc 32.2 g/dl (32-36); Mean Corpuscular Hemoglobin 29.8 pg (26-34); Mean Corpuscular Volume 92.6 fl (80-100); Mean Platelet Volume 10.3 fl (7.4-10.4); Monocytes Absolute Auto 1.2 K/mm3 (0.1-0.6); Neutrophils Absolute Auto 8.8 K/mm3 (1.3-6.7); Neutrophils Percent Auto 57.1 % (45.5-73.1); Platelet Count Result 215 k/mm3 (150-375); Red Blood Count 3.66 M/mm3 (4.2-5.4); Red Cell Distribution Width 13.3 % (11.5-14.5); White Blood Count 15.4 K/mm3 (4.5-10.0)
[2022-10-31 12:49] LABS: Lactic Acid 1.5 mmol/L (0.7-2.0)
--- NOTE | 2022-11-11 10:27 | PM.DS ---
DS: Admitting Diagnosis Discharge Date 10/31/22 Admitting Diagnosis Chest pain DS: Discharge Diagnosis Discharge Diagnosis (1) Non-ST elevation myocardial infarction (NSTEMI): Code(s): I21.4 - Non-ST elevation (NSTEMI) myocardial infarction Status: Acute Assessment and Plan: Coronary angiography recommended per Cardiology. Catheterization performed 10/30 Loaded with ASA 324mg x 1. Continue ASA 81mg once daily. Will load with Plavix 600mg x 1 and continue with Plavix 75mg once daily thereafter. Start high-intensity statin and heparin drip for now. Has gotten total of Prednisone 40mg PO in preparation for contrast given iodine allergy. Will give Solumedrol 40mg IV and Benadryl 50mg IV. Echocardiogram 10/30 showed EF of 60-65% with grade 1 diastolic dysfunction, mild valvular disease Cardiac catheterization 10/30 showed: 1. The proximal and mid LAD has heavy diffuse calcifications. The mid LAD has two tandem dense calcific lesions of 80-90%. 2. The mid RCA has diffuse disease with an 80% stenosis. Attempted PCI of the mid RCA lesion, but unable to get good guide catheter engagement of the RCA despite attempts with multiple different guide catheters. Cardiology is recommending: Plan for complex PCI as an outpatient at [facility] with Dr. Christensen (tentatively scheduled for November 14). Continue ASA 81mg once daily, Plavix 75mg once daily, high-intensity statin. Will optimize antianginal therapy. Continue calcium channel myles. Will add Imdur. Anticipate discharge 10/31 (2) Hypertension: Code(s): I10 - Essential (primary) hypertension Status: Acute Assessment and Plan: Blood pressure reviewed 10/31 (3) Leukocytosis: Code(s): D72.829 - Elevated white blood cell count, unspecified Status: Acute Assessment and Plan: Stable, likely reactive, monitor 10/31: slightly increased, check PCT/CRP/LA, recheck CBC this afternoon (4) Hyperglycemia: Code(s): R73.9 - Hyperglycemia, unspecified Status: Acute Assessment and Plan: Blood glucose reviewed 10/31 (5) Gastroesophageal reflux disease: Code(s): K21.9 - Gastro-esophageal reflux disease without esophagitis Status: Acute Plan DVT prophylaxis with heparin drip, now SCDs GI prophylaxis with PPI Code status full code 10/29: the patient presented to the emergency department for evaluation of intermittent chest discomfort as detailed in HPI. Labs, imaging, EKG, and all reports were personally reviewed. Her history is somewhat unusual for cardiac pain however she does have elevated troponins and EKG changes. She has been started on a heparin drip. She received metoprolol and aspirin in the ED. She will be NPO after midnight for possible cardiac catheterization tomorrow. Her blood pressures were reviewed and they have been relatively stable. Continue antihypertensives and monitor blood pressures closely. Random glucose was 157. Check fasting level and hemoglobin A1c. White blood cell count is elevated however she was recently on steroids. She gives no history to suggest underlying acute infection. Her home medications will be reviewed and resumed as appropriate. DS: Summary Hospital Course Hospital Course: 87-year-old female with history of hypertension and GERD presenting with chest pain and currently being treated for NSTEMI. Coronary angiography recommended per Cardiology.? Catheterization performed 10/30 Loaded with ASA 324mg x 1. Continue ASA 81mg once daily. Will load with Plavix 600mg x 1 and continue with Plavix 75mg once daily thereafter. Start high-intensity statin and heparin drip for now. Has gotten total of Prednisone 40mg PO in preparation for contrast given iodine allergy. Will give Solumedrol 40mg IV and Benadryl 50mg IV. Echocardiogram 10/30 showed EF of 60-65% with grade 1 diastolic dysfunction, mild valvular disease Cardiac catheterization 10/30 showed: 1. The proximal and
== END 2022-10-31 16:17 | disposition home or self-care (01) | DRG 282 ==
LOC: ANHED 15:50 → ANHIMU 17:28
PROVIDERS: Emergency Medicine; Internal Medicine; Internal Medicine Cardiovascular Disease; Physician Assistant; Admitting Provider Internal Medicine; Emergency Provider General Practice; Visit Provider Student in an Organized Health Care Education/Training Program
PROC: 4A023N7 Measurement of Cardiac Sampling and Pressure, Left Heart, Percutaneous Approach (ICD-10-PCS; CPT 93454; principal; 2022-10-30 09:30)
DX: I21.4 Non-ST elevation (NSTEMI) myocardial infarction (principal); I25.10 Atherosclerotic heart disease of native coronary artery without angina pectoris; Z53.09 Procedure and treatment not carried out because of other contraindication; I10 Essential (primary) hypertension; E78.5 Hyperlipidemia, unspecified; K21.9 Gastro-esophageal reflux disease without esophagitis; D72.829 Elevated white blood cell count, unspecified; R73.9 Hyperglycemia, unspecified; Z90.49 Acquired absence of other specified parts of digestive tract; Z90.710 Acquired absence of both cervix and uterus
CPT/HCPCS: 36415; 71046; 80048; 80053; 80061; 83036; 83605; 83690; 83735; 84145; 84443; 84484; 85025; 85610; 85730; 86140; 93005; 93306; 93454; 99291; A9270; C1887; C1894; J0583; J1200; J1644; J2250; J2405; J2920; J3010; J7030; J7040; J7512